=== PATIENT | female | born 1945 | race Caucasian/White ===

== ENCOUNTER 2023-08-27 09:58 | Emergency (ER) | payer OTHER, BC ==
[~2023-08-27] VITALS: Ht 157.5 cm; Wt 87.1 kg
[~2023-08-27 09:58] MED LIST: ONDA-8 TL; OSEL75CA PO
[2023-08-27 10:30] VITALS: BP_SYST 136; PULSE 66; RESP 19; TEMP 98; O2SAT 97
[2023-08-27] MEDS ORDERED: NAPR-688 PO (13:30)
[2023-08-27] MEDS ORDERED: ACET-2634 PO (13:30)
[2023-08-27 14:11] VITALS: BP_SYST 131; PULSE 67; RESP 19; TEMP 98; O2SAT 98
== END 2023-08-27 14:11 | disposition home or self-care (01) ==
LOC: SED 09:58
DX: S00.83XA Contusion of other part of head, initial encounter (principal); S80.02XA Contusion of left knee, initial encounter; S50.02XA Contusion of left elbow, initial encounter; J45.909 Unspecified asthma, uncomplicated; I10 Essential (primary) hypertension; E11.9 Type 2 diabetes mellitus without complications; Z88.0 Allergy status to penicillin; Z88.2 Allergy status to sulfonamides; Z79.899 Other long term (current) drug therapy; W01.190A Fall on same level from slipping, tripping and stumbling with subsequent striking against furniture, initial encounter; Y93.89 Activity, other specified; Y92.89 Other specified places as the place of occurrence of the external cause; Y99.8 Other external cause status
CPT/HCPCS: 70450-TC; 70486-TC; 73564; 76376; 99284